=== PATIENT | male | born 1985 | race Caucasian/White ===

== ENCOUNTER 2025-02-28 11:03 | Emergency (ER) | payer OTHER ==
[2025-02-28] MEDS: Diphtheria,Pertussis(Acell),Tetanus Vaccine 0.5 ML Syringe IM ONE (13:08)
[2025-02-28] MEDS: Lidocaine 1% 10 ML MDV INJECT ONE (14:09)
== END 2025-02-28 15:30 | disposition home or self-care (01) ==
LOC: MW.ED 11:03
DX: S61.211A Laceration without foreign body of left index finger without damage to nail, initial encounter (principal); Z88.8 Allergy status to other drugs, medicaments and biological substances; Z90.49 Acquired absence of other specified parts of digestive tract; Z23 Encounter for immunization
CPT/HCPCS: 12002; 73120; 90471; 90715; 99283; J2003; 12042